=== PATIENT | female | born 1970 | race African-American/Black ===

== ENCOUNTER 2016-05-30 20:19 | Emergency (ER) | payer OTHER ==
--- NOTE | ~2016-05-30 | CT2 ---
[facility] A Service of [facility] RADIOLOGY TEXT RESULTS PATIENT: ELINOR DAUGHERTY LOCATION: [facility] : 66 UNIT #: [id number] AGE: [address]: Sylvia Stallings MD SEX: F ORDER DR: [id number] [facility]. [place], [place] [address] [id number] MR#: [id number] Acc #: [id number] NAME: ELINOR DAUGHERTY : 1970 SEX: F STUDY DATE/TIME: 05/31/2016 0:15 UNIT: [facility] ROOM: STUDY DESCRIPTION: CT Abd and Pelv W Cont Attending Physician: Sylvia Stallings M.D. Referring Physician: Mitch Ramirez M.D. Ordering Physician: Sylvia Stallings M.D. Primary Care Physician: Mitch Ramirez M.D. MEDICAL IMAGING REPORT This report is preliminary unless electronic signature is present EXAM CT abdomen and pelvis with contrast, 05/31/2016. HISTORY A 46-year-old female in the ED complaining of 3-day history of left side abdomen and flank pain. Body aches. TECHNIQUE This CT exam was performed with one or more of the following radiation dose reduction techniques: automatic exposure control, adjustment of mA and/or kV according to patient size, and iterative reconstruction. CT examination of the abdomen and pelvis was performed with IV contrast. GI contrast material was not ordered. FINDINGS Abdomen: Liver, pancreas, spleen and kidneys are normal in size and appearance. Nondistended gallbladder. No bile duct dilatation. Small bowel and colon are normal in caliber and appearance, with the exception of mild sigmoid and lower descending colonic diverticulosis. No CT evidence of acute diverticulitis. The appendix is normal. Normal-caliber abdominal aorta. Pelvis: Uterus, ovaries, bladder and rectum are within normal limits. No mass, adenopathy or fluid collection within the abdomen or pelvis. Limited lung base images show no active disease in the lower chest. IMPRESSION 1. No acute abnormality within the abdomen or pelvis. 2. Mild to moderate sigmoid and descending colonic diverticulosis. The appendix is normal. [facility] A Service of [facility] RADIOLOGY TEXT RESULTS PATIENT: ELINOR DAUGHERTY LOCATION: [facility] : 66 UNIT #: [id number] AGE: [address]: Sylvia Stallings MD SEX: F ORDER DR: Dictated by... Jarad Barrett M.D. THIS IS AN ELECTRONICALLY VERIFIED REPORT Jarad Barrett M.D. at 05/31/2016 9:53 PM BLANK/gabby TD: 05/31/2016 06:59 JOB #: [id number] MEDICAL IMAGING REPORT Page 1 of 1 COPY
[2016-05-30 15:30] LABS: URINE SOURCE CLEAN CATCH
[2016-05-30 15:40] LABS: URINE APPEARANCE CLEAR; URINE BILIRUBIN NEG (NEG); URINE BLOOD NEG (NEG); URINE COLOR YELLOW; URINE GLUCOSE >1000 MG/DL (NEG); URINE KETONE NEG (NEG); URINE LEUKOCYTE ESTERASE NEG (NEG); URINE NITRATE NEG (NEG); URINE PROTEIN NEG (NEG); URINE SPECIFIC GRAVITY 1.025 (1.003-1.035); URINE UROBILINOGEN 0.2 MG/DL (NEG)
[2016-05-30 15:46] LABS: CULTURE INDICATED? NO
[~2016-05-30 20:19] MED LIST: FLEXERIL10 MG PO; LORTAB 10-5001 EACH PO; NAPROSYN500 MG PO
[2016-05-30 21:12] LABS: BASOPHIL% 0.4 % (0-2.5); EOSINOPHIL# 0.1 X10e3 (0-0.7); EOSINOPHIL% 1.5 % (0.0-7.0); HEMOGLOBIN 12.7 gm/dL (12.0-16.0); LYMPHOCYTE# 2.4 X10e3 (1.0-3.5); LYMPHOCYTE% 47.9 % (17.0-45.0); MEAN CORPUSCULAR HGB CONC 32.6 g/dL (30-36); MEAN PLATELET VOLUME 10.5 FL (6.5-11.5); MONOCYTE# 0.3 X10e3 (0-1.0); MONOCYTE% 6.2 % (3.0-12.0); NEUTROPHIL# 2.2 X10e3 (1.5-7.1); PLATELET COUNT 148 X10e3 (140-420); RED BLOOD COUNT 4.53 X10e (3.90-5.30); RED CELL DISTRIBUTION WIDTH 12.8 % (11.0-15.5); WHITE BLOOD COUNT 4.9 X10e3 (4.0-10.5)
[2016-05-30 21:15] LABS: DIFF IND NO
[2016-05-30 21:43] LABS: ALBUMIN SERUM 3.7 g/dL (3.5-5.0); ALKALINE PHOSPHATASE 64 U/L (32-92); ALT (SGPT) 13 U/L (10-40); AMYLASE 41 U/L (0-46); AST (SGOT) 19 U/L (10-42); BILIRUBIN, DIRECT 0.1 mg/dL (0.0-0.2); BILIRUBIN,INDIRECT 0.3 mg/dL (0.0-0.9); BILIRUBIN,TOTAL 0.4 mg/dL (0.2-2.0); BLOOD UREA NITROGEN 9 mg/dL (9-23); CALCIUM SERUM 8.7 mg/dL (8.4-10.2); CARBON DIOXIDE 22 mmol/L (22-31); CHLORIDE 105 mmol/L (100-111); CREATININE SERUM 0.6 mg/dL (0.6-1.4); GLOM FILT RATE Estimated ABOVE60 mL/min (>60); GLUCOSE FASTING 207 mg/dL (70-110); LIPASE 29 U/L (22-51); POTASSIUM 3.3 mmol/L (3.5-5.1); PROTEIN TOTAL SERUM 6.6 g/dL (6.0-8.3); SODIUM 137 mmol/L (135-145)
== END 2016-05-31 01:30 | disposition home or self-care (01) ==
LOC: CED 20:19
PROVIDERS: Emergency Medicine
DX: R10.9 Unspecified abdominal pain (principal)
CPT/HCPCS: 74177; 80048; 80076; 81003; 82150; 83690; 84703; 85025; 96361; 96374; 96375; 99284; J1885; J2405; Q9967